=== PATIENT | female | born 1995 ===

== ENCOUNTER 2019-02-11 19:49 | Emergency (ER) | payer OTHER ==
[~2019-02-11] VITALS: Ht 154.9 cm; Wt 54.4 kg
[2019-02-11] MEDS ORDERED: LEXAPRO20 MG (20:23)
[2019-02-12] MEDS ORDERED: BACTRIM DS TAB1 EACH PO (00:46)
== END 2019-02-12 00:55 | disposition home or self-care (01) ==
LOC: ER 19:49
DX: N39.0 Urinary tract infection, site not specified (principal); R10.31 Right lower quadrant pain

== ENCOUNTER 2019-02-18 08:10 | Outpatient (CLI) | payer OTHER ==
[~2019-02-18 08:10] MED LIST: BACTRIM DS TAB1 EACH PO; LEXAPRO20 MG
== END 2019-02-18 08:12 | disposition home or self-care (01) ==
LOC: SONOGRAMA 08:10
DX: N92.1 Excessive and frequent menstruation with irregular cycle (principal)

== ENCOUNTER 2019-05-22 10:31 | Outpatient (CLI) | payer OTHER | END 2019-05-22 14:39 | disposition home or self-care (01) | LOC: LAB 10:31 | DX: J11.1 Influenza due to unidentified influenza virus with other respiratory manifestations (principal) ==

== ENCOUNTER 2021-12-28 08:37 | Outpatient (CLI) | payer OTHER | END 2021-12-28 08:38 | disposition home or self-care (01) | LOC: RAD 08:37 | DX: M99.01 Segmental and somatic dysfunction of cervical region (principal); M99.02 Segmental and somatic dysfunction of thoracic region; M99.03 Segmental and somatic dysfunction of lumbar region; M99.04 Segmental and somatic dysfunction of sacral region; M99.05 Segmental and somatic dysfunction of pelvic region ==

== ENCOUNTER 2022-09-22 08:36 | Outpatient (CLI) | payer OTHER | END 2022-09-22 08:42 | disposition home or self-care (01) | LOC: LAB 08:36 | PROVIDERS: ATTEND Obstetrics & Gynecology | DX: Z11.3 Encounter for screening for infections with a predominantly sexual mode of transmission (principal); Z11.4 Encounter for screening for human immunodeficiency virus [HIV]; A64 Unspecified sexually transmitted disease; D50.0 Iron deficiency anemia secondary to blood loss (chronic); N39.0 Urinary tract infection, site not specified; E55.9 Vitamin D deficiency, unspecified; R42 Dizziness and giddiness ==

== ENCOUNTER 2022-09-22 10:19 | Outpatient (CLI) | payer OTHER | END 2022-09-22 14:00 | disposition home or self-care (01) | LOC: SONOGRAMA 10:19 | PROVIDERS: ATTEND Obstetrics & Gynecology | DX: N84.0 Polyp of corpus uteri (principal) ==